=== PATIENT | female | born 1990 | race Hispanic/Latino ===

== ENCOUNTER 2017-10-24 15:45 | Emergency (ER) | payer OTHER ==
[2017-10-24 15:58] LABS: BASOPHILS % (AUTO) 1.1 % (0.0-5.0); EOSINOPHILS % (AUTO) 0.6 % (0.0-8.0); HEMATOCRIT 37.6 % (36-48); LYMPHOCYTES % (AUTO) 21.6 % (21.0-51.0); MEAN CORPUSCULAR HEMOGLOBIN 29.9 pg (27.0-33.0); MEAN CORPUSCULAR HGB CONC 34.6 g/dL (32.0-36.0); MEAN CORPUSCULAR VOLUME 86.4 fL (79-99); MONOCYTES % (AUTO) 4.8 % (3.0-13.0); NEUTROPHILS % (AUTO) 71.9 % (40.0-77.0); PLATELET COUNT (AUTO) 370 K/uL (130-400); RED BLOOD CELL COUNT(AUTO) 4.36 MIL/uL (4.00-5.50); RED CELL DISTRIBUTION WIDTH 12.6 % (11.0-15.5); WHITE BLOOD COUNT (AUTO) 6.6 K/uL (4.8-10.8)
[2017-10-24 16:06] LABS: CREATININE 0.6 mg/dL (0.5-1.5); POTASSIUM 3.5 mmol/L (3.5-5.1)
[2017-10-24 16:10] LABS: ALBUMIN 3.9 g/dL (3.5-5.0); BILIRUBIN,TOTAL 0.5 mg/dL (0.2-1.0)
[2017-10-24 16:37] LABS: APPEARANCE,URINE Clear (CLEAR); BILIRUBIN,URINE Negative (NEGATIVE); COLOR,URINE Yellow (YELLOW); GLUCOSE, URINE (UA) Negative (NEGATIVE); KETONES,URINE >=80 mg/dL (NEGATIVE); LEUKOCYTE ESTERASE ,URINE Trace (NEGATIVE); NITRATE,URINE Negative (NEGATIVE); OCCULT BLOOD,URINE Negative (NEGATIVE); PROTEIN,URINE Negative (NEGATIVE)
[2017-10-24 16:54] LABS: RBC,URINE 0-1 /HPF (0-1)
[2017-10-24 16:55] LABS: BACTERIA,URINE Few /HPF (None Seen); MUCUS,URINE Few LPF (None Seen); SQUAMOUS EPITHELIAL CELL,UR Few /LPF (0-2)
[2017-10-24] MEDS ORDERED: SODIUM CHLORIDE 0.9% 1000ML 1,000 ML IV ONE (17:31)
[2017-10-24] MEDS ORDERED: ACETAMINOPHEN 325 MG TAB ONE (18:24)
== END 2017-10-24 19:37 | disposition home or self-care (01) ==
LOC: EDH 15:45
DX: O00.01 Abdominal pregnancy with intrauterine pregnancy (principal); O26.891 Other specified pregnancy related conditions, first trimester; Z3A.00 Weeks of gestation of pregnancy not specified; Z98.890 Other specified postprocedural states
CPT/HCPCS: 36415; 76801; 80053; 81001; 82948 ×2; 85025; 96360 ×2; 99285; J7030

== ENCOUNTER 2018-02-19 21:33 | Observation (INO) | payer OTHER ==
[~2018-02-19] VITALS: Ht 157.5 cm; Wt 57.6 kg
[2018-02-19] MEDS ORDERED: PREN-196 PO (21:53)
[2018-02-19 22:39] LABS: BILIRUBIN,URINE Negative (NEGATIVE); COLOR,URINE Yellow (YELLOW); GLUCOSE, URINE (UA) Negative (NEGATIVE); KETONES,URINE 40 mg/dL (NEGATIVE); LEUKOCYTE ESTERASE ,URINE Negative (NEGATIVE); NITRATE,URINE Negative (NEGATIVE); OCCULT BLOOD,URINE Negative (NEGATIVE); PROTEIN,URINE Negative (NEGATIVE); UROBILINOGEN,URINE 0.2 mg/dL (0.2-1.0)
[2018-02-19 22:54] LABS: APPEARANCE,URINE CLEAR (CLEAR)
[2018-02-19] MEDS ORDERED: LACTATED RINGERS 1000ML 1,000 ML IV SCH (23:00)
[2018-02-19] MEDS ORDERED: ACETAMINOPHEN EXTRA STRENGTH 500 MG TABLET PO SCH (23:00)
[2018-02-19] MEDS ORDERED: LACTATED RINGERS 1000ML IV ONE (23:00)
[2018-02-19] MEDS ORDERED: TERBUTALINE SULFATE VIAL 1MG/ML SQ SCH (23:00)
[2018-02-19] MEDS ORDERED: LACTATED RINGERS 1000ML 1,000 ML IV ONE (23:24)
[2018-02-19] MEDS ORDERED: TERBUTALINE SULFATE VIAL 1MG/ML SQ ONE (23:24)
== END 2018-02-20 01:33 | disposition home or self-care (01) ==
LOC: EDH 21:33 → LDH 21:34
DX: O26.892 Other specified pregnancy related conditions, second trimester (principal); R10.32 Left lower quadrant pain; Z3A.22 22 weeks gestation of pregnancy
CPT/HCPCS: 76805; 81003; 96360; 96361; 96372; 99285; G0378 ×4; J3105; J7120

== ENCOUNTER 2018-06-08 06:06 | Inpatient (IN) | payer OTHER ==
[2018-06-07 16:20] LABS: HEMATOCRIT 33.2 % (36-48); MEAN CORPUSCULAR HEMOGLOBIN 25.6 pg (27.0-33.0); MEAN CORPUSCULAR HGB CONC 32.3 g/dL (32.0-36.0); PLATELET COUNT (AUTO) 352 K/uL (130-400); RED CELL DISTRIBUTION WIDTH 15.1 % (11.0-15.5); WHITE BLOOD COUNT (AUTO) 8.3 K/uL (4.8-10.8)
[~2018-06-08] VITALS: Ht 157.5 cm; Wt 64.9 kg
[~2018-06-08 06:06] MED LIST: PREN-196 PO
[2018-06-08] MEDS ORDERED: CALDOLOR 800MG+NS 250ML 250 ML IV PRN (06:15)
[2018-06-08] MEDS ORDERED: LACTATED RINGERS 1000ML 1,000 ML IV SCH (06:15)
[2018-06-08] MEDS ORDERED: CEFAZOLIN SODIUM 1 GM VIAL IVP PRN (06:15)
[2018-06-08] MEDS ORDERED: LACTATED RINGERS 1000ML 1,000 ML IV ONE (06:18)
[2018-06-08] MEDS ORDERED: SENSORCAINE/DEXT/PF 0.75% 2ML AMP IJ ONE ×2 (07:25→07:34)
[2018-06-08] MEDS ORDERED: OXYTOCIN 10 UNIT/1ML 10ML VIAL ONE ×2 (07:27→08:57)
[2018-06-08] MEDS ORDERED: ONDANSETRON HCL 4 MG/2 ML VIAL ONE (07:28)
[2018-06-08] MEDS ORDERED: DURAMORPH PF1 MG/ML 10ML AMP IV ONE (07:32)
[2018-06-08] MEDS ORDERED: OXYTOCIN 10 USP UNITS/ML ONE (07:34)
[2018-06-08] MEDS ORDERED: EPHEDRINE SULFATE 50 MG/ML AMPULE ONE (07:42)
[2018-06-08] MEDS ORDERED: CEFAZOLIN SODIUM 1 GM VIAL IVP ONE (08:18)
[2018-06-08] MEDS ORDERED: MIDAZOLAM HCL 1 MG/ML 2ML VIAL ONE (08:38)
[2018-06-08] MEDS ORDERED: OXYTOCIN-LR 20 UNITS/1000 ML 1,000 ML IV PRN (09:41)
[2018-06-08] MEDS ORDERED: SODIUM CHLORIDE 0.9% 10 ML VIAL IVP PRN (09:45)
[2018-06-08] MEDS ORDERED: PROMETHAZINE HCL 25 MG/ML 1ML AMPULE IM PRN (10:00)
[2018-06-08] MEDS ORDERED: METOCLOPRAMIDE 10 MG/2 ML VIAL IVP PRN (10:00)
[2018-06-08] MEDS ORDERED: DiphenhydrAMINE HCL 50 MG/ML VIAL IVP PRN (10:00)
[2018-06-08] MEDS ORDERED: MORPHINE SULFATE 2 MG/ML 1ML SYG IVP PRN (10:00)
[2018-06-08] MEDS ORDERED: EPHEDRINE SULFATE 50 MG/ML AMPULE IVP PRN (10:00)
[2018-06-08] MEDS ORDERED: ONDANSETRON HCL 4 MG/2 ML VIAL IVP PRN ×2 (10:00)
[2018-06-08] MEDS ORDERED: HYDROCODONE/ACETAMINOPHEN 5/325 MG TAB PO PRN (10:00)
[2018-06-08] MEDS ORDERED: NALOXONE HCL 0.4 MG/1 ML ML IVP PRN (10:00)
[2018-06-08] MEDS ORDERED: ONDANSETRON HCL 4 MG/2 ML 8 MG in SODIUM CHLORIDE 0.9% 50 ML IVP NR (10:00)
[2018-06-08] MEDS: MEPERIDINE-PF 75 MG/ML SYG IM PRN ×2 (10:54→14:43)
[2018-06-08] MEDS: PROMETHAZINE HCL 25 MG/ML 1ML AMPULE IM PRN ×2 (10:54→14:42)
[2018-06-08 12:12] VITALS: BP 129/70
[2018-06-08] MEDS: LEVETIRACETAM 500 MG TABLET PO SCH ×2 (14:43→21:03)
[2018-06-08 15:47] VITALS: BP 124/88
[2018-06-08] MEDS: CALDOLOR 800MG+NS 250ML 250 ML IV SCH (17:50)
[2018-06-08 19:30] VITALS: BP 99/53
[2018-06-08] MEDS: DEXTROSE 5 %-0.45 % NACL 1,000 ML IV PRN (21:55)
[2018-06-09 00:02] VITALS: BP 84/63
[2018-06-09] MEDS: CALDOLOR 800MG+NS 250ML 250 ML IV SCH (02:16)
[2018-06-09 03:20] VITALS: BP 105/66
[2018-06-09] MEDS: DEXTROSE 5 %-0.45 % NACL 1,000 ML IV PRN (06:04)
[2018-06-09 06:56] LABS: HEMATOCRIT 26.1 % (36-48); MEAN CORPUSCULAR HEMOGLOBIN 25.5 pg (27.0-33.0); MEAN CORPUSCULAR VOLUME 79.7 fL (79-99); PLATELET COUNT (AUTO) 267 K/uL (130-400); RED BLOOD CELL COUNT(AUTO) 3.28 MIL/uL (4.00-5.50); RED CELL DISTRIBUTION WIDTH 14.9 % (11.0-15.5); WHITE BLOOD COUNT (AUTO) 7.1 K/uL (4.8-10.8)
[2018-06-09 07:28] LABS: HEPATITIS Bs ANTIGEN SCREEN P Negative (Negative)
[2018-06-09 07:32] VITALS: BP 99/70
[2018-06-09] MEDS ORDERED: MEASLES/MUMPS/RUBELLA VACCINE, LIVE 0.5 ML/VIAL SQ SCH (09:00)
[2018-06-09] MEDS ORDERED: DIPH,PERTUSS(ACELL),TET VAC/PF 0.5 ML VIAL IM SCH (09:00)
[2018-06-09] MEDS: LEVETIRACETAM 500 MG TABLET PO SCH ×3 (09:23→22:20)
[2018-06-09] MEDS: LIDOCAINE 5% TOPICAL PATCH TP SCH (09:24)
[2018-06-09] MEDS: IBUPROFEN 800 MG TAB PO SCH ×2 (09:48→16:46)
[2018-06-09 11:18] VITALS: BP 87/51
[2018-06-09] MEDS: HYDROCODONE/ACETAMINOPHEN 5/325 MG TAB PO PRN ×3 (12:56→22:21)
[2018-06-09 15:37] VITALS: BP 88/68
[2018-06-09] MEDS: SIMETHICONE 80 MG TAB.CHEW PO PRN ×2 (16:45→22:20)
[2018-06-09] MEDS: BISACODYL 10 MG SUPP.RECT RC PRN (17:51)
[2018-06-09 20:05] VITALS: BP 95/59
[2018-06-10 00:24] VITALS: BP 108/66
[2018-06-10] MEDS: IBUPROFEN 800 MG TAB PO SCH ×2 (01:51→09:02)
[2018-06-10 03:20] VITALS: BP 83/53
[2018-06-10] MEDS: HYDROCODONE/ACETAMINOPHEN 5/325 MG TAB PO PRN ×2 (03:40→10:13)
[2018-06-10 05:02] VITALS: BP 104/67
[2018-06-10] MEDS: BISACODYL 10 MG SUPP.RECT RC PRN (05:12)
[2018-06-10 08:02] VITALS: BP 124/69
[2018-06-10] MEDS ORDERED: DOCUSATE SODIUM 100 MG CAP PO ONE (08:38)
[2018-06-10] MEDS: SIMETHICONE 80 MG TAB.CHEW PO PRN (09:01)
[2018-06-10] MEDS: LIDOCAINE 5% TOPICAL PATCH TP SCH (09:03)
[2018-06-10] MEDS: LEVETIRACETAM 500 MG TABLET PO SCH (09:12)
[2018-06-10 11:42] VITALS: BP 114/72
== END 2018-06-10 13:20 | disposition home or self-care (01) | DRG 787 ==
LOC: LDH 06:06 → WSH 12:10
PROC: 10D00Z1 Extraction of Products of Conception, Low, Open Approach (ICD-10-PCS; principal; 2018-06-08 08:00)
PROC: 3E0234Z Introduction of Serum, Toxoid and Vaccine into Muscle, Percutaneous Approach (ICD-10-PCS; 2018-06-09)
DX: O34.211 Maternal care for low transverse scar from previous cesarean delivery (principal); O99.354 Diseases of the nervous system complicating childbirth; G40.209 Localization-related (focal) (partial) symptomatic epilepsy and epileptic syndromes with complex partial seizures, not intractable, without status epilepticus; O99.824 Streptococcus B carrier state complicating childbirth; O69.1XX0 Labor and delivery complicated by cord around neck, with compression, not applicable or unspecified; Z37.0 Single live birth; Z3A.38 38 weeks gestation of pregnancy; O90.81 Anemia of the puerperium; D50.9 Iron deficiency anemia, unspecified; Z23 Encounter for immunization
CPT/HCPCS: 36415; 59510; 85027; 86592; 86850; 86900; 86901; 87340; 90707; 90715; A4344; A4606; J0690; J1741; J2175; J2250; J2274; J2405; J2550; J2590; J3490; J7120; Q2038

== ENCOUNTER → 2019-04-20 | Outpatient (CLI) | payer OTHER ==
[~2019-04-20] MED LIST changes: +GADODIAMIDE 10 MMOL/20 ML VIAL IV ONE
== END | disposition home or self-care (01) ==
LOC: RAH 06:15
PROVIDERS: ATTEND Psychiatry & Neurology Neurology
DX: G93.89 Other specified disorders of brain (principal); R90.82 White matter disease, unspecified
CPT/HCPCS: 70553; A9579